=== PATIENT | male | born 1935 | race Caucasian/White ===

== ENCOUNTER 2016-08-09 11:38 | Day surgery (SDC) | payer MEDICARE ==
[~2016-08-09] VITALS: Ht 185.4 cm; Wt 75.0 kg
[~2016-08-09 11:38] MED LIST: 0.9% Sodium Chloride 1,000 ML IV PRN; ASPI325T32 PO; ATOR20TA PO; CALC600T12 PO; CHOL200025 PO; CYAN1TAB8 PO; LEVO50TA6 PO; MELA3TAB46 PO; NITR0.3T6 SL; OMEP20TA24 PO
[2016-08-09] MEDS ORDERED: fentaNYL-PF 50 mCg/mL 2 mL Inj IVPUSH PRN (11:40)
[2016-08-09] MEDS ORDERED: Sodium Chloride LOK Flush 10 mL Syringe IV PRN (11:40)
[2016-08-09 12:06] VITALS: BP 157/90; PULSE 91; RESP 14; O2SAT 97
--- NOTE | 2016-08-09 13:26 | PCM.ENDCOL ---
Colonoscopy Date of Service: Aug 09, 2016 Physician Marcel Akers MD Indication for Procedure Screening colon cancer Post Procedure Dx & Findings: Diverticula hemorrhoids Procedure Colonoscopy Prep adequate Withdrawal 13 minutes PROCEDURE IN DETAIL: After rectal examination Olympus video was inserted patient's anal canal and advanced the cecum. Landmarks are identified including this valve and appendiceal orifice. Scope was drawn systematically. The mucosa of the cecum, ascending, transverse, descending, sigmoid, rectal mucosa lined with whitish, pink, smooth, glistening, normal-appearing mucosa, normal fine branching, underlying vascularity, normal haustra. The patient tolerated procedure and was transported to observation area. In the sigmoid colon there are few small diverticula. In the rectum retroflexion was done which showed mild hemorrhoids anal canal was inspected carefully and the way out and hemorrhoids noted. Impression Diverticuliti Hemorrhoids Recommendation Repeat colonoscopy 10 years Diverticular diet Presedation Assessment Risks and Benefits Informed consent was obtained from the patient after all risks and benefits including but not limited to drug reaction, infection, pain, bleeding, perforation, as well as alternatives were discussed. Patient monitoring Continuous pulse oximetry, cardiac monitoring, blood pressure monitoring, IV access, and oxygen at 2L per nasal cannula. Periprocedural Fentanyl: Fentanyl 75mcg Incrementally Midazolam: Midazolam 3mg Incrementally Complications There were no periprocedural complications identified. Post Procedure Plan Post Procedure Recommendations 1. Restrict activities today. 2. Resume normal activities in the morning. 3. Resume medications. 4. Patient informed of normal post procedure side effects as bloating, drowsiness, blood streaking in the stool. 5. average risk CRCS. If colon polyps come back as: -Hyperplastic- can repeat colonoscopy in 10 years -Tubular adenoma- repeat colonoscopy in 5 years -Tubulovillous/villous adenoma- repeat colonoscopy in 3 years -If any dysplasia- return to clinic as soon as possible 6. Please don't hesitate to call me with any questions. Marcel Akers MD Aug 09, 2016 13:26
[2016-08-09 13:30] VITALS: BP 113/74; PULSE 53; RESP 14; O2SAT 94
[2016-08-09 13:40] VITALS: BP 118/75; PULSE 61; RESP 15; O2SAT 94
[2016-08-09 13:50] VITALS: BP 125/69; PULSE 53; RESP 15; O2SAT 96
== END 2016-08-09 23:59 | disposition home or self-care (01) ==
LOC: END 11:38
PROVIDERS: ATTEND Internal Medicine
DX: Z12.11 Encounter for screening for malignant neoplasm of colon (principal); K57.30 Diverticulosis of large intestine without perforation or abscess without bleeding; K64.8 Other hemorrhoids; Z80.0 Family history of malignant neoplasm of digestive organs; K21.0 Gastro-esophageal reflux disease with esophagitis; I25.10 Atherosclerotic heart disease of native coronary artery without angina pectoris; E78.5 Hyperlipidemia, unspecified; Z95.5 Presence of coronary angioplasty implant and graft; Z79.82 Long term (current) use of aspirin
CPT/HCPCS: 99153; G0105; G0500; J2250; J3010; J7030